=== PATIENT | male | born 1965 | race Caucasian/White ===

== ENCOUNTER 2021-06-23 01:17 | Emergency (ER) | payer OTHER ==
[~2021-06-23] VITALS: Ht 198.1 cm; Wt 90.7 kg
--- NOTE | 2021-06-23 01:37 | NUR ---
pt arrive by ra for chest pain, pt states he was at [facility] they did labs and xray.
--- NOTE | 2021-06-23 02:15 | NUR ---
call placed to [facility] er. Dr. Perez spoke with DAVID Solis at this ER. regarding the care and treatment and tests that were performed at [facility].
--- NOTE | 2021-06-23 02:17 | NUR ---
Multiple iv attempts unsuccessful Dr. Perez made aware.
--- NOTE | 2021-06-23 02:17 | NUR ---
Dr. Perez is speaking with the patient, the patient states he has had c/p for 4 days.
[2021-06-23 02:21] LABS: HEMATOCRIT 42.9 % (36.7-47.1); MEAN CORPUSCULAR VOLUME 100.9 fL (73.0-96.2); PLATELET COUNT (AUTO) 116 K/uL (152-348)
--- NOTE | 2021-06-23 02:22 | NUR ---
spoke with Long HERNANDEZ, she will fax over the docments, results from this patient's er visit at [facility].
[2021-06-23 02:24] LABS: CARBON DIOXIDE 29 mmol/L (21-32); CHLORIDE 103 mmol/L (98-107); GLUCOSE 100 mg/dL (74-106); POTASSIUM 3.6 mmol/L (3.5-5.1); UREA NITROGEN, BLOOD 7 mg/dL (7-18)
[2021-06-23 02:38] LABS: ALANINE AMINOTRANSFERASE 54 U/L (16-63); ALKALINE PHOSPHATASE 78 U/L (50-136); ASPARTATE AMINOTRANSFERASE 32 U/L (15-37); BILIRUBIN,DIRECT 0.2 mg/dL (0.0-0.2); BILIRUBIN,TOTAL 0.6 mg/dL (0.2-1.0); TOTAL PROTEIN, SERUM 8.5 g/dL (6.4-8.2)
--- NOTE | 2021-06-23 03:51 | NUR ---
Patient given written and verbal discharge instructions. Patient verbalizes understanding of instructions. Patient is ambulatory with steady gait. Refuses offer of assisted placement. Patient given list of available shelters in surrounding area. pt ambulatory without assist, denies pain.
[2021-06-23 03:53] VITALS: BP 120/73
== END 2021-06-23 03:54 | disposition home or self-care (01) ==
LOC: EDBD 01:23 → ER 01:23
DX: R07.9 Chest pain, unspecified (principal); Z86.718 Personal history of other venous thrombosis and embolism; Z59.00 Homelessness unspecified; D69.6 Thrombocytopenia, unspecified; R03.0 Elevated blood-pressure reading, without diagnosis of hypertension; Z86.711 Personal history of pulmonary embolism
CPT/HCPCS: 36415; 84484; 85025; 93005; A4663